=== PATIENT | male | born 2000 | race Caucasian/White ===

== ENCOUNTER 2021-06-27 08:00 | Outpatient (CLI) | payer OTHER ==
--- NOTE | 2021-06-27 15:02 | XRAY Report ---
PROCEDURE: Shoulder 3 View LT INDICATIONS: LEFT SHOULDER TECHNIQUE: 3 views of the shoulder were acquired. COMPARISON: None. FINDINGS: Bones: No fractures or dislocations. No suspicious bony lesions. Visualized ribs appear intact. Mi ld acromioclavicular joint osteoarthrosis. Mild downsloping of the lateral acromion, a congenital loni iant. Soft tissues: No suspicious soft tissue calcifications. IMPRESSION: No acute osseous abnormality. If there is clinical concern or persistent symptoms, addit ional imaging such as repeat radiographs or advanced imaging (e.g. CT, MRI) may be helpful for furthe r evaluation. Reviewed by: Dakota Juan MD on 06/27/2021 3:01 PM [facility] Approved by: Dakota Juan MD on 06/27/2021 3:01 PM [facility] Station ID: [id number]
== END 2021-06-27 23:59 ==
LOC: DI.N 08:00
PROVIDERS: ATTEND Family Medicine
DX: M25.512 Pain in left shoulder (principal)